=== PATIENT | female | born 1985 | race Two or more races ===

== ENCOUNTER 2016-06-01 14:46 | Emergency (ER) | payer SELFPAY ==
[~2016-06-01] VITALS: Ht 157.5 cm; Wt 59.0 kg
[2016-06-01 14:56] VITALS: BP 116/79
[2016-06-01] MEDS ORDERED: ONDANSETRON 4 MG TAB.RAPDIS ONE (15:15)
[2016-06-01] MEDS ORDERED: HYDROCODONE/APAP 5/325MG 1 EACH TABLET ONE (15:15)
[2016-06-01] MEDS ORDERED: ONDANSETRON 4 MG TAB.RAPDIS SL ONE (15:30)
[2016-06-01] MEDS ORDERED: HYDROCODONE/APAP 5/325MG 1 EACH TABLET PO ONE (15:30)
== END 2016-06-01 15:26 | disposition home or self-care (01) ==
LOC: ER 14:51
DX: J32.9 Chronic sinusitis, unspecified (principal); R51 Headache
CPT/HCPCS: 99283; A4606; Q0162; Z7610